=== PATIENT | male | born 1990 | race Caucasian/White ===

== ENCOUNTER 2018-08-16 14:36 | Emergency (ER) | payer BC ==
[~2018-08-16] VITALS: Ht 182.9 cm; Wt 114.3 kg
[~2018-08-16 14:36] MED LIST: DOXEPIN HCL50 MG PO; MOMETASONE FURO30 ML TOP; PERCOCET 7.5-31 EACH PO
[2018-08-16] MEDS ORDERED: WELLBUTRIN SR150 MG PO ×2 (15:36)
[2018-08-16] MEDS ORDERED: IBUPROFEN600 MG PO (17:07)
== END 2018-08-16 17:34 | disposition home or self-care (01) ==
LOC: ED 14:36
DX: M54.2 Cervicalgia (principal); F17.200 Nicotine dependence, unspecified, uncomplicated; Z88.8 Allergy status to other drugs, medicaments and biological substances; Z79.899 Other long term (current) drug therapy
CPT/HCPCS: 72125; 99283-25; 99406

== ENCOUNTER 2020-09-09 08:57 | Emergency (ER) | payer BC ==
[~2020-09-09] VITALS: Ht 190.5 cm; Wt 124.7 kg
[~2020-09-09 08:57] MED LIST changes: +IBUPROFEN600 MG PO; +WELLBUTRIN SR150 MG PO
[2020-09-09] MEDS ORDERED: OXYBUTYNIN CHLO10 MG PO (10:01)
[2020-09-09] MEDS ORDERED: LISINOPRIL10 MG PO (10:01)
[2020-09-09] MEDS ORDERED: FLUOXETINE HCL20 MG PO (10:01)
[2020-09-09] MEDS ORDERED: FLUOXETINE HCL10 MG PO (10:01)
[2020-09-09] MEDS ORDERED: VENTOLIN HFA18 GM INH (10:02)
[2020-09-09] MEDS ORDERED: VITAMIN D21250 MCG PO (10:02)
[2020-09-09] MEDS ORDERED: METHOCARBAMOL500 MG PO (11:15)
[2020-09-09] MEDS ORDERED: PREDNISONE20 MG PO (11:15)
== END 2020-09-09 11:30 | disposition home or self-care (01) ==
LOC: ED 08:57
DX: S39.012A Strain of muscle, fascia and tendon of lower back, initial encounter (principal); Z87.891 Personal history of nicotine dependence; Z88.8 Allergy status to other drugs, medicaments and biological substances; Z79.899 Other long term (current) drug therapy; X50.0XXA Overexertion from strenuous movement or load, initial encounter
CPT/HCPCS: 96374; 96375; 99283-25; J1885; J2930

== ENCOUNTER 2024-07-18 11:50 | Day surgery (SDC) | payer BC ==
[~2024-07-18] VITALS: Ht 190.5 cm; Wt 109.0 kg
[~2024-07-18 11:50] MED LIST changes: +FLUOXETINE HCL10 MG PO; +FLUOXETINE HCL20 MG PO; +IBLOOD GLUCOSE TEST STRIP 1 EA TEST VI PRN; +LACTATED RINGER'S 1,000 ML IV SCH; +LIDOCAINE HCL 1% 5 ML SDV INJ ONE; +LIDOCAINE HCL 4% 50 ML BTL TOP SCH; +LISINOPRIL10 MG PO; +METHOCARBAMOL500 MG PO; +MIDAZOLAM HCL 5 MG/5 ML VIAL IV PRN; +OXYBUTYNIN CHLO10 MG PO; +PREDNISONE20 MG PO; +VENTOLIN HFA18 GM INH; +VITAMIN D21250 MCG PO; +fentaNYL citrate 100 MCG/2 ML VIAL IV PRN
[2024-07-18 12:09] VITALS: BP 132/73
[2024-07-18] MEDS ORDERED: ROSUVASTATIN CA20 MG PO (12:15)
[2024-07-18] MEDS ORDERED: LAMOTRIGINE25 MG PO (12:15)
[2024-07-18] MEDS ORDERED: ONDANSETRON ODT8 MG PO (12:16)
[2024-07-18] MEDS ORDERED: ALPRAZOLAM ER1 MG PO (12:16)
[2024-07-18] MEDS ORDERED: D3-200050 MCG PO (12:17)
[2024-07-18] MEDS ORDERED: CO Q-10200 MG PO (12:17)
[2024-07-18] MEDS ORDERED: OMEPRAZOLE10 MG PO (12:18)
[2024-07-18] MEDS ORDERED: MIDAZOLAM HCL 5 MG/5 ML VIAL ONE (12:41)
[2024-07-18] MEDS ORDERED: fentaNYL citrate 100 MCG/2 ML VIAL ONE (12:42)
--- NOTE | 2024-07-18 13:23 | NUR ---
07/18/24 1323 Elizabeth Bolton HOB IS ELEVATED. ICED WATER IS GIVEN. PATIENT IS SITTING UP, DRINKING THAT AND TOLERATING IT WELL.
[2024-07-18 13:31] VITALS: BP 127/69
--- NOTE | 2024-07-19 11:16 | OR ---
[facility] [address], [place] [address] Signed DATE OF OPERATION: 07/18/2024 SURGEON: Imtiaz Gomes MD PREOPERATIVE DIAGNOSIS: Clinical gastroesophageal reflux including spontaneous regurgitation. POSTOPERATIVE DIAGNOSIS: Hiatal hernia without ongoing esophagitis, stricture, or neoplasm. No evidence of Duong epithelium. PROCEDURE: Esophagogastroduodenoscopy with biopsy. ANESTHESIA: Intravenous sedation, fentanyl 100 mcg and Versed 9 mg. INDICATIONS FOR THE PROCEDURE: This large 34-year-old white man is a patient of TARIQ Tenorio. He was bothered by significant regurgitation and heartburn symptoms as well as "food sticking" upon swallowing. He was prescribed Carafate, which was of little benefit and subsequent PPI medication, which has helped him quite a lot. He is taking only 10 mg daily of omeprazole. He has had no hematemesis or weight loss. He does have underlying sleep apnea. Additionally, he has had recent symptoms of right upper abdominal and subscapular pain, sometimes following meals and not constant in onset. He is admitted at this time to undergo upper endoscopy to assess for Duong epithelium, stricture, neoplasm, or other finding related to clinical evidence of gastroesophageal reflux and likely will undergo a gallbladder ultrasound in the near future as well. He understands the risk of bleeding, infection, and perforation related to upper endoscopy and wished to proceed. FINDINGS: Esophagus was remarkably normal without Duong epithelium, stricture, neoplasm, or other issue. He certainly did not need dilation. There was very poor flap valve consistent with moderate sized hiatal hernia as well. Stomach and duodenum were otherwise normal. CLOtest was negative 15 minutes post procedure. PROCEDURE IN DETAIL: The patient was brought to the endoscopy suite, given lidocaine hypopharyngeal anesthesia and placed in lateral decubitus position. He was given intravenous sedation Electronically Signed By: IMTIAZ GOMES MD 07/19/24 1116 PATIENT NAME: MARY DENSON OPERATIVE REPORT DATE OF : [birth year] REPORT #: [id number] PHYSICIAN: IMTIAZ GOMES MD PCP: JANINE STYLES PA-C REPORT IS CONFIDENTIAL AND NOT TO BE RELEASED WITHOUT AUTHORIZATION [facility] [address], [place] [address] Signed to the point of slurred speech and nystagmus with full cardiopulmonary monitoring. A bite block was placed. An Olympus video upper endoscope was passed into the hypopharynx. Vocal cords appeared normal. The scope was then advanced into the esophagus without problem. The esophagus throughout its full length was entirely normal, certainly showing no sign of stricture, neoplasm, varices, Duong epithelium, or other problem. The scope was passed to the stomach, which was insufflated with air. Rugal folds were normal as was the antral motility. Pylorus was normal, scope was passed through into the duodenum. The duodenum was normal. Biopsies were obtained to assess for celiac disease, nevertheless. The scope was then withdrawn to the stomach and biopsies taken of the antrum for both ANITA and pathologic testing. Retroflexed view was undertaken, showing a patulous flap valve. Retroflexed view and withdrawal allowed visualization of the esophagus, indicative of at least a moderate-sized hiatal hernia. The scope was then straightened and withdrawn to the distal esophagus, where multiple biopsies were obtained of the distal esophagus, though it appeared normal and the midesophagus as well. The scope was withdrawn and removed. The patient was taken to the recovery room in good condition. CONCLUDING DIAGNOSIS: Hiatal hernia without active esophagitis and no evidence of stricture. PLAN: We recommend he continue with omeprazole 20 mg daily at this time. I would like to order an ultrasound of his gallbladder to assess for biliary disease; he tells me he has multiple family members with gallbladder problems. We will see him back in the office after the ultrasound, review his progress regarding reflux and assess if there is a biliary issue as well. MD DAVEY Ford/SANAML /[id number] cc: Janine Styles PA-C Electronically Signed By: IMTIAZ GOMES MD 07/19/24 1116 PATIENT NAME: MARY DENSON OPERATIVE REPORT DATE OF : [birth year] REPORT #: [id number] PHYSICIAN: IMTIAZ GOMES MD PCP: JANINE STYLES PA-C REPORT IS CONFIDENTIAL AND NOT TO BE RELEASED WITHOUT AUTHORIZATION [facility] [address] [place] [address] [place], [place] [address] Signed Copies: JANINE STYLES PA-C ~ Electronically Signed By: IMTIAZ GOMES MD 07/19/24 1116 PATIENT NAME: MARY DENSON OPERATIVE REPORT DATE OF : [birth year] REPORT #: [id number] PHYSICIAN: IMTIAZ GOMES MD PCP: JANINE STYLES PA-C REPORT IS CONFIDENTIAL AND NOT TO BE RELEASED WITHOUT AUTHORIZATION
--- NOTE | 2024-07-20 16:49 | PATH ---
[facility] [address], [place] [address] Signed SPECIMEN(S): A DUODENAL BIOPSY SPECIMEN(S): B ANTRUM BIOPSY SPECIMEN(S): C GE JUNCTION SPECIMEN(S): D MIDDLE ESOPHAGEAL BIOPSY SPECIMEN SOURCE: A. DUODENAL BIOPSY B. ANTRUM BIOPSY C. GE JUNCTION D. MIDDLE ESOPHAGEAL BIOPSY CLINICAL HISTORY: Dysphagia, hiatal hernia FINAL PATHOLOGIC DIAGNOSIS: A. Duodenal biopsy: - Benign duodenal mucosa. B. Antrum biopsies: - Gastric mucosa with focal mild chronic inflammation. - Negative for evidence of Helicobacter organisms on routine HE-stained sections. C. GE junction biopsy: - Benign esophageal epithelium, negative for increased epithelial eosinophils. D. Middle esophagus biopsy: - Benign esophageal epithelium, negative for increased epithelial eosinophils. JVR:clv MICROSCOPIC EXAMINATION: Histologic sections of all submitted blocks are examined by light microscopy. These findings, together with the gross examination, support the pathologic diagnosis. GROSS DESCRIPTION: A. The specimen, labeled and designated "Isidro, duodenal biopsy," is received in formalin and consists of five forbes soft tissue fragments, ranging from 0.1-0.3 cm. Entirely submitted in (A1). B. The specimen, labeled and designated "Isidro, antrum biopsy," is received in formalin and consists of two forbes soft tissue fragments, ranging from 0.3-0.6 cm. Entirely submitted in (B1). C. The specimen, labeled and designated "Isidro, GE junction biopsy," is received in formalin and consists of five forbes soft tissue fragments, ranging PATIENT NAME: MARY DENSON PATHOLOGY DATE OF : [birth year] REPORT #: [id number] PHYSICIAN: DEIDRA BARBER PCP: KIMBERLY GARCIA PA-C REPORT IS CONFIDENTIAL AND NOT TO BE RELEASED WITHOUT AUTHORIZATION [facility] [address] [place] [id number] Signed from 0.1-0.6 cm. Entirely submitted in (C1). D. The specimen, labeled and designated "Isidro, middle esophagus biopsy," is received in formalin and consists of three forbes soft tissue fragments, ranging from 0.2-0.3 cm. Entirely submitted in (D1). VB (under the direct supervision of a pathologist) The Gross Description was prepared using a voice recognition system. The report was reviewed for accuracy; however, sound-alike word errors, addition and/or deletions may occur. If there is any question about this report, please contact Client Services. PERFORMING LABORATORY: Technical component was performed by [facility], [address] [place] [address] (CLIA# [id number]). Professional interpretation was performed by [facility], [address] [place] [id number] (CLIA#: [id number]). Diagnostician: Mal Tamayo MD Pathologist Electronically Signed 07/20/2024 Copies: ~ PATIENT NAME: MARY DENSON PATHOLOGY DATE OF : [birth year] REPORT #: [id number] PHYSICIAN: DEIDRA BARBER PCP: KIMBERLY GARCIA PA-C REPORT IS CONFIDENTIAL AND NOT TO BE RELEASED WITHOUT AUTHORIZATION
== END 2024-07-18 13:45 | disposition home or self-care (01) ==
LOC: DS 11:50
PROVIDERS: ATTEND Surgery
PROC: 0DB68ZX Excision of Stomach, Via Natural or Artificial Opening Endoscopic, Diagnostic (ICD-10-PCS; 2024-07-18)
PROC: 0DB28ZX Excision of Middle Esophagus, Via Natural or Artificial Opening Endoscopic, Diagnostic (ICD-10-PCS; 2024-07-18)
PROC: 0DB38ZX Excision of Lower Esophagus, Via Natural or Artificial Opening Endoscopic, Diagnostic (ICD-10-PCS; 2024-07-18)
PROC: 0DB98ZX Excision of Duodenum, Via Natural or Artificial Opening Endoscopic, Diagnostic (ICD-10-PCS; principal; 2024-07-18 13:00)
DX: K21.9 Gastro-esophageal reflux disease without esophagitis (principal); K44.9 Diaphragmatic hernia without obstruction or gangrene; E78.5 Hyperlipidemia, unspecified; E66.9 Obesity, unspecified; Z68.30 Body mass index [BMI] 30.0-30.9, adult; K29.70 Gastritis, unspecified, without bleeding
CPT/HCPCS: G0500; J2250; J3010; J7121